=== PATIENT | male | born 1940 | race Two or more races ===

== ENCOUNTER 2017-09-07 12:37 | Inpatient (IN) | payer MEDICARE, OTHER ==
[2017-09-07] MEDS ORDERED: ZOLPIDEM 5 MG TAB PO (14:30)
[2017-09-07] MEDS ORDERED: NACL 0.9% 3 ML SYG IV (14:30)
[2017-09-07] MEDS ORDERED: DOCUSATE SODIUM 100 MG CAP PO (14:30)
[2017-09-07] MEDS: MAGNESIUM CITRATE 300 ML BTL PO (15:00)
[2017-09-07 15:03] LABS: ADD MAN DIFF? NO
[2017-09-07 15:05] LABS: BASOPHILS % 0.3 % (0.0-2.0); EOSINOPHILS # 0.2 10^3/ul (0.0-0.5); EOSINOPHILS % 2.7 % (0.0-7.0); HEMOGLOBIN 7.5 g/dl (14.0-18.0); LYMPHOCYTES # 1.8 10^3/ul (0.8-2.9); LYMPHOCYTES % 31.5 % (15.0-51.0); MEAN CORPUSCULAR HEMOGLOBIN 28.3 pg (29.0-33.0); MEAN CORPUSCULAR HGB CONC 32.6 g/dl (32.0-37.0); MEAN CORPUSCULAR VOLUME 86.8 fl (82.0-101.0); MEAN PLATELET VOLUME 9.9 fl (7.4-10.4); MONOCYTE # 0.5 10^3/ul (0.3-0.9); MONOCYTES % 7.9 % (0.0-11.0); NEUTROPHIL # 3.3 10^3/ul (1.6-7.5); NEUTROPHILS % 57.1 % (39.0-77.0); PLATELET COUNT 158 10^3/UL (140-415); RED BLOOD COUNT 2.65 10^6/ul (4.70-6.10); RED CELL DISTRIBUTION WIDTH 13.6 % (11.5-14.5)
[2017-09-07 15:05] LABS: WHITE BLOOD COUNT 5.8 10^3/ul (4.8-10.8)
[2017-09-07 15:25] LABS: ALANINE AMINOTRANSFERASE 21 IU/L (13-69); ALBUMIN 3.8 g/dl (3.3-4.9); ALBUMIN/GLOBULIN RATIO 1.15; ALKALINE PHOSPHATASE 42 IU/L (42-121); ANION GAP 15 (8-16); ASPARTATE AMINO TRANSFERASE 19 IU/L (15-46); BILIRUBIN,INDIRECT 0.2 mg/dl (0-1.1); BILIRUBIN,TOTAL 0.2 mg/dl (0.2-1.3); BLOOD UREA NITROGEN 23 mg/dl (7-20); CALCIUM 8.7 mg/dl (8.4-10.2); CARBON DIOXIDE 26 mmol/L (21-31); CHLORIDE 103 mmol/L (97-110); CREATININE 1.66 mg/dl (0.61-1.24); GLUCOSE 105 mg/dl (70-220); SODIUM 139 mmol/L (135-144); TOTAL PROTEIN 7.1 g/dl (6.1-8.1)
[2017-09-07 15:27] LABS: POTASSIUM 5.3 mmol/L (3.5-5.1)
[2017-09-07] MEDS ORDERED: DEXTROSE 50% 50 ML SYRINGE IV ×2 (15:30)
[2017-09-07] MEDS ORDERED: GLUCOSE GEL 15 GRAM TUBE BUCCAL (15:30)
[2017-09-07] MEDS ORDERED: GLUCOSE GEL 15 GRAM TUBE PO ×2 (15:30)
[2017-09-07] MEDS ORDERED: GLUCAGON 1 MG INJ IM (15:30)
[2017-09-07 15:36] LABS: INR 1.06; PROTIME 13.9 Sec (11.9-14.9); PT RATIO 1.1
[2017-09-07 15:37] LABS: PARTIAL THROMBOPLASTIN TIME 32.2 Sec (25.0-35.0)
[2017-09-07] MEDS: LISINOPRIL 20 MG TAB PO (15:54)
[2017-09-07 15:55] LABS: CARCINOEMBRYONIC ANTIGEN 1.1 ng/ml (0.0-5.0)
[2017-09-07] MEDS: AMLODIPINE 5 MG TAB PO ×2 (15:55→22:00)
[2017-09-07] MEDS: SOD CHLORIDE 0.45% 1,000 ML IV (15:55)
[2017-09-07] MEDS: INSULIN ASPART [NOVOLOG] 3 ML PEN SC ×2 (18:05→21:00)
[2017-09-07] MEDS: BISACODYL (EC) 5 MG TAB PO (18:09)
[2017-09-07] MEDS: ATORVASTATIN 20 MG TAB PO (21:08)
[2017-09-07] MEDS: PEG/ELECTROLYTES 4L BTL PO (21:22)
[2017-09-07] MEDS: ONDANSETRON 4 MG INJ IV (21:59)
[2017-09-07] MEDS: metroNIDAZOLE 250 MG TAB PO (22:00)
[2017-09-07] MEDS: CIPROFLOXACIN 500 MG TAB PO (22:00)
[2017-09-07 23:08] LABS: HEMATOCRIT 22.8 % (42.0-52.0); HEMOGLOBIN 7.5 g/dl (14.0-18.0)
[2017-09-07 23:39] LABS: IMMEDIATE SPIN CROSSMATCH 1 2
[2017-09-08] MEDS: MAGNESIUM CITRATE 300 ML BTL PO (00:23)
[2017-09-08] MEDS: PEG/ELECTROLYTES 4L BTL PO (00:24)
[2017-09-08] MEDS: ACCU-CHEK XX (02:00)
[2017-09-08] MEDS: PANTOPRAZOLE (EC) 40 MG TAB PO (06:00)
[2017-09-08] MEDS: CIPROFLOXACIN 500 MG TAB PO ×2 (06:00→18:10)
[2017-09-08] MEDS: SOD CHLORIDE 0.45% 1,000 ML IV ×3 (07:06→14:16)
[2017-09-08] MEDS: INSULIN ASPART [NOVOLOG] 3 ML PEN SC ×4 (07:59→20:15)
[2017-09-08] MEDS: metroNIDAZOLE 250 MG TAB PO ×3 (08:31→22:20)
[2017-09-08] MEDS: AMLODIPINE 5 MG TAB PO (08:33)
[2017-09-08] MEDS: LISINOPRIL 20 MG TAB PO (08:33)
[2017-09-08 14:54] LABS: ADD MAN DIFF? NO
[2017-09-08 15:16] LABS: INR 1.08; PROTIME 14.1 Sec (11.9-14.9); PT RATIO 1.1
[2017-09-08 15:17] LABS: PARTIAL THROMBOPLASTIN TIME 32.6 Sec (25.0-35.0)
[2017-09-08] MEDS: GLYCOPYRROLATE 0.4 MG INJ (15:20)
[2017-09-08 15:23] LABS: ALANINE AMINOTRANSFERASE 25 IU/L (13-69); ALBUMIN 3.6 g/dl (3.3-4.9); ALBUMIN/GLOBULIN RATIO 1.16; ALKALINE PHOSPHATASE 38 IU/L (42-121); ANION GAP 15 (8-16); ASPARTATE AMINO TRANSFERASE 22 IU/L (15-46); BILIRUBIN,INDIRECT 0.7 mg/dl (0-1.1); BILIRUBIN,TOTAL 0.7 mg/dl (0.2-1.3); BLOOD UREA NITROGEN 17 mg/dl (7-20); CALCIUM 8.8 mg/dl (8.4-10.2); CARBON DIOXIDE 27 mmol/L (21-31); CHLORIDE 103 mmol/L (97-110); CHOL/HDL RATIO 2.4 RATIO; CHOLESTEROL 108 mg/dl (100-200); CREATININE 1.34 mg/dl (0.61-1.24); GLUCOSE 100 mg/dl (70-220); HDL CHOLESTEROL 45 mg/dl (31-75); LDL CHOLESTEROL,CALCULATED 52 mg/dl; MAGNESIUM 1.8 mg/dl (1.7-2.5); POTASSIUM 4.8 mmol/L (3.5-5.1); SODIUM 140 mmol/L (135-144); TOTAL PROTEIN 6.7 g/dl (6.1-8.1); TRIGLYCERIDES 55 mg/dl (0-149)
[2017-09-08] MEDS: EPHEDrine SULFATE 50 MG/5 ML SYG ×3 (15:27→16:14)
[2017-09-08] MEDS: PROPOFOL 40 ML (15:27)
[2017-09-08] MEDS: hydrALAzine 20 MG INJ (15:29)
[2017-09-08] MEDS: PHENYLephrine (100 MCG/ML) 5ML SYG ×2 (15:47→16:14)
[2017-09-08 15:52] LABS: BASOPHILS % 0.7 % (0.0-2.0); EOSINOPHILS # 0.3 10^3/ul (0.0-0.5); EOSINOPHILS % 4.6 % (0.0-7.0); HEMATOCRIT 27.2 % (42.0-52.0); HEMOGLOBIN 9.1 g/dl (14.0-18.0); LYMPHOCYTES # 2.1 10^3/ul (0.8-2.9); LYMPHOCYTES % 35.2 % (15.0-51.0); MEAN CORPUSCULAR HEMOGLOBIN 28.8 pg (29.0-33.0); MEAN CORPUSCULAR HGB CONC 33.5 g/dl (32.0-37.0); MEAN CORPUSCULAR VOLUME 86.1 fl (82.0-101.0); MEAN PLATELET VOLUME 11.3 fl (7.4-10.4); MONOCYTE # 0.5 10^3/ul (0.3-0.9); NEUTROPHIL # 3.1 10^3/ul (1.6-7.5); NEUTROPHILS % 51.2 % (39.0-77.0); PLATELET COUNT 175 10^3/UL (140-415); RED BLOOD COUNT 3.16 10^6/ul (4.70-6.10); RED CELL DISTRIBUTION WIDTH 13.6 % (11.5-14.5)
[2017-09-08 15:53] LABS: FREE THYROXINE INDEX (Calc) 3.33 ug/ml (0.65-3.89)
[2017-09-08 15:54] LABS: T3 UPTAKE 36.2 % (23.5-40.5); T4 (THYROXINE) 9.2 ug/dl (5.5-11.0)
[2017-09-08] MEDS: PROPOFOL 20 ML (16:07)
[2017-09-08] MEDS: ATORVASTATIN 20 MG TAB PO (22:20)
[2017-09-09] MEDS: ACCU-CHEK XX (02:00)
[2017-09-09] MEDS: CIPROFLOXACIN 500 MG TAB PO ×2 (06:11→17:21)
[2017-09-09] MEDS: PANTOPRAZOLE (EC) 40 MG TAB PO (06:11)
[2017-09-09 06:52] LABS: ADD MAN DIFF? NO
[2017-09-09 06:57] LABS: BASOPHILS % 0.4 % (0.0-2.0); EOSINOPHILS # 0.2 10^3/ul (0.0-0.5); EOSINOPHILS % 3.2 % (0.0-7.0); HEMATOCRIT 27.3 % (42.0-52.0); HEMOGLOBIN 9.1 g/dl (14.0-18.0); LYMPHOCYTES # 1.7 10^3/ul (0.8-2.9); LYMPHOCYTES % 24.4 % (15.0-51.0); MEAN CORPUSCULAR HEMOGLOBIN 28.8 pg (29.0-33.0); MEAN CORPUSCULAR HGB CONC 33.3 g/dl (32.0-37.0); MEAN CORPUSCULAR VOLUME 86.4 fl (82.0-101.0); MEAN PLATELET VOLUME 10.8 fl (7.4-10.4); MONOCYTE # 0.5 10^3/ul (0.3-0.9); MONOCYTES % 6.9 % (0.0-11.0); NEUTROPHIL # 4.6 10^3/ul (1.6-7.5); NEUTROPHILS % 64.8 % (39.0-77.0); PLATELET COUNT 187 10^3/UL (140-415); RED BLOOD COUNT 3.16 10^6/ul (4.70-6.10); RED CELL DISTRIBUTION WIDTH 13.8 % (11.5-14.5)
[2017-09-09 06:57] LABS: WHITE BLOOD COUNT 7.1 10^3/ul (4.8-10.8)
[2017-09-09 07:57] LABS: ANION GAP 14 (8-16); BLOOD UREA NITROGEN 17 mg/dl (7-20); CALCIUM 8.6 mg/dl (8.4-10.2); CARBON DIOXIDE 27 mmol/L (21-31); CHLORIDE 103 mmol/L (97-110); CREATININE 1.41 mg/dl (0.61-1.24); GLUCOSE 136 mg/dl (70-220); MAGNESIUM 1.7 mg/dl (1.7-2.5); POTASSIUM 4.5 mmol/L (3.5-5.1); SODIUM 139 mmol/L (135-144)
[2017-09-09] MEDS: INSULIN ASPART [NOVOLOG] 3 ML PEN SC ×4 (08:00→20:50)
[2017-09-09] MEDS: metroNIDAZOLE 250 MG TAB PO ×3 (08:28→20:45)
[2017-09-09] MEDS: LISINOPRIL 20 MG TAB PO (08:30)
[2017-09-09] MEDS: AMLODIPINE 5 MG TAB PO (08:30)
[2017-09-09] MEDS: SOD CHLORIDE 0.45% 1,000 ML IV (20:45)
[2017-09-09] MEDS: MAGNESIUM SULFATE 2 GM/50 ML 50 ML IVPB (20:45)
[2017-09-09] MEDS: ATORVASTATIN 20 MG TAB PO (20:45)
[2017-09-10] MEDS: ACCU-CHEK XX (02:00)
[2017-09-10 05:55] LABS: ADD MAN DIFF? NO
[2017-09-10] MEDS: PANTOPRAZOLE (EC) 40 MG TAB PO (06:00)
[2017-09-10] MEDS: CIPROFLOXACIN 500 MG TAB PO (06:00)
[2017-09-10 06:05] LABS: WHITE BLOOD COUNT 6.7 10^3/ul (4.8-10.8)
[2017-09-10 06:05] LABS: BASOPHILS % 0.5 % (0.0-2.0); EOSINOPHILS # 0.4 10^3/ul (0.0-0.5); EOSINOPHILS % 5.7 % (0.0-7.0); HEMATOCRIT 27.8 % (42.0-52.0); HEMOGLOBIN 9.3 g/dl (14.0-18.0); LYMPHOCYTES % 29.6 % (15.0-51.0); MEAN CORPUSCULAR HGB CONC 33.5 g/dl (32.0-37.0); MEAN CORPUSCULAR VOLUME 86.6 fl (82.0-101.0); MEAN PLATELET VOLUME 10.5 fl (7.4-10.4); MONOCYTE # 0.6 10^3/ul (0.3-0.9); MONOCYTES % 9.3 % (0.0-11.0); NEUTROPHIL # 3.6 10^3/ul (1.6-7.5); NEUTROPHILS % 54.6 % (39.0-77.0); PLATELET COUNT 198 10^3/UL (140-415); RED BLOOD COUNT 3.21 10^6/ul (4.70-6.10); RED CELL DISTRIBUTION WIDTH 13.8 % (11.5-14.5)
[2017-09-10 06:17] LABS: ANION GAP 12 (8-16); BLOOD UREA NITROGEN 16 mg/dl (7-20); CALCIUM 8.8 mg/dl (8.4-10.2); CARBON DIOXIDE 29 mmol/L (21-31); CHLORIDE 106 mmol/L (97-110); CREATININE 1.48 mg/dl (0.61-1.24); GLUCOSE 143 mg/dl (70-220); MAGNESIUM 2.1 mg/dl (1.7-2.5); POTASSIUM 4.7 mmol/L (3.5-5.1); SODIUM 142 mmol/L (135-144)
[2017-09-10 07:00] LABS: PROSTATE SPECIFIC ANTIGEN 12.8 ng/ml (0.0-4.0)
[2017-09-10] MEDS: INSULIN ASPART [NOVOLOG] 3 ML PEN SC ×4 (07:47→21:00)
[2017-09-10] MEDS: AMLODIPINE 5 MG TAB PO (08:49)
[2017-09-10] MEDS: metroNIDAZOLE 250 MG TAB PO ×2 (08:49→12:15)
[2017-09-10] MEDS: LISINOPRIL 20 MG TAB PO (08:49)
[2017-09-10] MEDS: SOD CHLORIDE 0.45% 1,000 ML IV ×2 (13:13→21:40)
[2017-09-10] MEDS: TAMSULOSIN (SR) 0.4 MG CAP PO ×2 (14:24→21:36)
[2017-09-10] MEDS: ACETAMINOPHEN 325 MG TAB PO (16:31)
[2017-09-10] MEDS ORDERED: morphine 2 MG INJ IV (21:30)
[2017-09-10] MEDS: ATORVASTATIN 20 MG TAB PO (21:36)
[2017-09-10 21:58] LABS: PROSTATE SPECIFIC ANTIGEN 12.6 ng/ml (0.0-4.0)
[2017-09-11] MEDS: ACCU-CHEK XX (02:00)
[2017-09-11] MEDS: PANTOPRAZOLE (EC) 40 MG TAB PO (06:52)
[2017-09-11 06:54] LABS: ADD MAN DIFF? NO
[2017-09-11 06:59] LABS: BASOPHILS % 0.4 % (0.0-2.0); EOSINOPHILS # 0.4 10^3/ul (0.0-0.5); EOSINOPHILS % 4.7 % (0.0-7.0); HEMATOCRIT 30.3 % (42.0-52.0); HEMOGLOBIN 10.1 g/dl (14.0-18.0); LYMPHOCYTES # 1.6 10^3/ul (0.8-2.9); LYMPHOCYTES % 21.4 % (15.0-51.0); MEAN CORPUSCULAR HEMOGLOBIN 28.8 pg (29.0-33.0); MEAN CORPUSCULAR HGB CONC 33.3 g/dl (32.0-37.0); MEAN CORPUSCULAR VOLUME 86.3 fl (82.0-101.0); MEAN PLATELET VOLUME 10.5 fl (7.4-10.4); MONOCYTE # 0.7 10^3/ul (0.3-0.9); MONOCYTES % 9.6 % (0.0-11.0); NEUTROPHIL # 4.8 10^3/ul (1.6-7.5); NEUTROPHILS % 63.6 % (39.0-77.0); PLATELET COUNT 221 10^3/UL (140-415); RED BLOOD COUNT 3.51 10^6/ul (4.70-6.10); RED CELL DISTRIBUTION WIDTH 13.7 % (11.5-14.5)
[2017-09-11 06:59] LABS: WHITE BLOOD COUNT 7.5 10^3/ul (4.8-10.8)
[2017-09-11 07:32] LABS: ANION GAP 11 (8-16); BLOOD UREA NITROGEN 18 mg/dl (7-20); CALCIUM 8.6 mg/dl (8.4-10.2); CARBON DIOXIDE 29 mmol/L (21-31); CHLORIDE 107 mmol/L (97-110); CREATININE 1.43 mg/dl (0.61-1.24); GLUCOSE 130 mg/dl (70-220); MAGNESIUM 1.8 mg/dl (1.7-2.5); POTASSIUM 4.3 mmol/L (3.5-5.1); SODIUM 143 mmol/L (135-144)
[2017-09-11] MEDS: INSULIN ASPART [NOVOLOG] 3 ML PEN SC ×2 (08:00→12:21)
[2017-09-11] MEDS: TAMSULOSIN (SR) 0.4 MG CAP PO (09:25)
[2017-09-11] MEDS: AMLODIPINE 5 MG TAB PO (09:25)
[2017-09-11] MEDS: LISINOPRIL 20 MG TAB PO (09:26)
== END 2017-09-11 15:39 | disposition home or self-care (01) | DRG 394 ==
LOC: PP2 12:37 → MS4 09-08 17:00
PROVIDERS: Internal Medicine
PROC: 0DBK8ZZ Excision of Ascending Colon, Via Natural or Artificial Opening Endoscopic (ICD-10-PCS; principal; 2017-09-08 13:00)
PROC: 0DB68ZX Excision of Stomach, Via Natural or Artificial Opening Endoscopic, Diagnostic (ICD-10-PCS; 2017-09-08 13:00)
DX: K64.8 Other hemorrhoids (principal); K92.1 Melena; D62 Acute posthemorrhagic anemia; K29.70 Gastritis, unspecified, without bleeding; K64.4 Residual hemorrhoidal skin tags; R11.2 Nausea with vomiting, unspecified; E11.9 Type 2 diabetes mellitus without complications; I10 Essential (primary) hypertension; K59.00 Constipation, unspecified; Z87.891 Personal history of nicotine dependence; K63.5 Polyp of colon; I49.3 Ventricular premature depolarization; N40.1 Benign prostatic hyperplasia with lower urinary tract symptoms; R33.8 Other retention of urine
CPT/HCPCS: 36430; 71045; 74176; 76856; 80048; 80053; 80061; 82378; 82962; 83036; 83735; 84153; 84154; 84436; 84479; 85014; 85018; 85025; 85610; 85730; 86850; 86900; 86901; 86920; 87086; 88305; 88312; 93005; 93306